=== PATIENT | male | born 1955 | race African-American/Black ===

== ENCOUNTER 2023-04-10 21:24 | Emergency (ER) | payer MEDICARE, MEDICAID ==
[~2023-04-10] VITALS: Ht 167.6 cm; Wt 60.0 kg
[2023-04-10 21:40] VITALS: TEMP 98.1; O2SAT 98
[2023-04-10 23:00] VITALS: BP 114/74; PULSE 95; RESP 15
[2023-04-10 23:38] LABS: BASOPHILS % 0.8 % (0.0-2.0); DIFFERENTIAL COMMENT 0; EOSINOPHILS % 3.2 % (0.0-5.0); HEMATOCRIT. 47.3 % (42.0-52.0); HEMOGLOBIN. 16.2 g/dL (14.0-18.0); LYMPHOCYTES % 18.4 % (20.0-50.0); MEAN CORPUSCULAR HEMOGLOBIN 31.9 pg (28.0-32.0); MEAN CORPUSCULAR HGB CONC 34.3 g/dL (31.0-37.0); MEAN CORPUSCULAR VOLUME 93.1 fL (80.0-94.0); MEAN PLATELET VOLUME 9.6 fl (7.4-10.4); MONOCYTES % 8.9 % (2.0-8.0); NEUTROPHILS % 68.7 % (40.0-76.0); PLATELET 151 x1000/uL (130-400); RED BLOOD CELL COUNT 5.08 mill/uL (4.7-6.1); RED CELL DISTRIBUTION WIDTH 16.2 % (11.6-14.6); WHITE BLOOD COUNT 6.4 x1000/uL (4.5-11.0)
[2023-04-10 23:50] LABS: AMMONIA < 10 uMol/L (<32)
[2023-04-10 23:54] LABS: ACETAMINOPHEN < 2 ug/mL (10-30); ALANINE AMINOTRANSFERASE 13 IU/L (10-49); ALBUMIN 4.5 g/dL (3.2-4.8); ASPARTATE AMINOTRANSFERASE 20 IU/L (<34); BILIRUBIN TOTAL 0.5 mg/dL (0.1-1.0); CALCIUM 9.6 mg/dL (8.7-10.4); CARBON DIOXIDE 26 mEq/L (21-32); CHLORIDE 104 mEq/L (98-107); CREATININE 1.2 mg/dL (0.6-1.3); GLUCOSE 130 mg/dL (70-105); POTASSIUM 3.9 mEq/L (3.5-5.1); PROTEIN TOTAL 8.4 g/dL (6.0-8.3); SODIUM 139 mEq/L (136-145); THYROID STIMULATING HORMONE 2.64 uIU/mL (0.55-4.78); TROPONIN I HIGH SENSITIVITY 30 ng/L (3.0-53); UREA NITROGEN BLOOD 20 mg/dL (9-23)
[2023-04-11 00:19] LABS: ETHANOL BLOOD < 10 mg/dL (<10)
[2023-04-11] MEDS ORDERED: NALO4SPR BOTHNSTRLS (01:14)
== END 2023-04-11 03:05 | disposition home or self-care (01) ==
LOC: EDBD 21:24 → ER 21:24
DX: T65.91XA Toxic effect of unspecified substance, accidental (unintentional), initial encounter (principal); X58.XXXA Exposure to other specified factors, initial encounter
CPT/HCPCS: 36415; 71045; 80053; 80307; 80320; 80329; 82140; 84443; 84484; 85025; 93005; 99285; G0480

== ENCOUNTER 2023-10-20 08:50 | Emergency (ER) | payer BC, MEDICAID ==
[~2023-10-20] VITALS: Ht 177.8 cm; Wt 78.0 kg
[~2023-10-20 08:50] MED LIST: NALO4SPR BOTHNSTRLS
[2023-10-20] MEDS ORDERED: IPRATROPIUM BROMIDE (0.02%) 0.5MG/2.5ML NEB HHN STA (09:05)
[2023-10-20] MEDS ORDERED: ALBUTEROL (0.083%) 2.5MG/3ML NEB HHN STA (09:05)
[2023-10-20] MEDS ORDERED: ALBUTEROL (0.083%) 2.5MG/3ML NEB HHN SCH (09:30)
[2023-10-20 09:33] VITALS: PULSE 69; RESP 22; O2SAT 100
[2023-10-20 09:34] LABS: BG BASE EXCESS -1.8 mmol/L (-2.0-2.0); BG CARBOXYHEMOGLOBIN 1.6 % (0.5-1.5); BG DEOXYHEMOGLOBIN 3.5 % (0.0-5.0); BG FRACTION INSPIRED OXYGEN 21; BG HCO3 ACT 21.8 mmol/L (22.0-26.0); BG METHEMOGLOBIN 0.3 % (0.0-1.5); BG OXYGEN SATURATION 96.4 % (92.0-98.5); BG OXYHEMOGLOBIN 94.6 % (94.0-97.0); BG PCO2 33.5 mmHg (35.0-45.0); BG PH 7.432 (7.350-7.450); BG PO2 86.6 mmHg (75.0-100.0); BG SAMPLE SITE RIGHT BRACHIAL; BG TOTAL HEMOGLOBIN 11.6 g/dL (12.0-18.0); BG VENT MODE ROOM AIR
[2023-10-20 09:35] LABS: BASOPHILS % 0.6 % (0.0-2.0); HEMATOCRIT. 35.8 % (42.0-52.0); HEMOGLOBIN. 11.6 g/dL (14.0-18.0); LYMPHOCYTES % 23.1 % (20.0-50.0); MEAN CORPUSCULAR HEMOGLOBIN 32.3 pg (28.0-32.0); MEAN CORPUSCULAR HGB CONC 32.5 g/dL (31.0-37.0); MEAN CORPUSCULAR VOLUME 99.3 fL (80.0-94.0); MEAN PLATELET VOLUME 10.6 fl (7.4-10.4); MONOCYTES % 8.7 % (2.0-8.0); NEUTROPHILS % 65.6 % (40.0-76.0); PLATELET 129 x1000/uL (130-400); RED BLOOD CELL COUNT 3.61 mill/uL (4.7-6.1); RED CELL DISTRIBUTION WIDTH 17.8 % (11.6-14.6); WHITE BLOOD COUNT 5.5 x1000/uL (4.5-11.0)
[2023-10-20 09:41] LABS: CHLORIDE 109 mEq/L (98-107); POTASSIUM 3.9 mEq/L (3.5-5.1); SODIUM 142 mEq/L (136-145)
[2023-10-20 09:42] LABS: CALCIUM 8.3 mg/dL (8.7-10.4); CARBON DIOXIDE 25 mEq/L (21-32)
[2023-10-20 09:47] LABS: GLUCOSE 163 mg/dL (70-105); PARTIAL THROMBOPLASTIN TIME 27.6 sec (23.4-31.0); PROTHROMBIN TIME 11.3 sec (9.6-11.0); UREA NITROGEN BLOOD 26 mg/dL (9-23)
[2023-10-20 09:49] LABS: TROPONIN I HIGH SENSITIVITY 27 ng/L (3.0-53)
[2023-10-20 10:06] LABS: CREATININE 1.7 mg/dL (0.6-1.3); ETHANOL BLOOD < 10 mg/dL (<10)
[2023-10-20] MEDS: MAGNESIUM 2 G PREMIX 50 ML IV ONE (10:18)
[2023-10-20] MEDS: METHYLPREDNISOLONE SOD SUCC 125MG/2ML (ACT-O-VIAL) IV STA (10:18)
[2023-10-20] MEDS: ASPIRIN 81MG TABLET PO ONE (10:18)
[2023-10-20] MEDS: SODIUM CHLORIDE 0.9% 1,000 ML IV ONE (10:37)
[2023-10-20 11:36] LABS: TROPONIN I HIGH SENSITIVITY 25 ng/L (3.0-53)
[2023-10-20] MEDS ORDERED: ALBU6.7H15 INH (12:29)
[2023-10-20] MEDS ORDERED: P50 MT (12:29)
[2023-10-20 13:45] VITALS: BP 108/75; PULSE 70; RESP 20; TEMP 98.4
== END 2023-10-20 13:50 | disposition home or self-care (01) ==
LOC: ER 08:50
DX: J44.1 Chronic obstructive pulmonary disease with (acute) exacerbation (principal); N17.9 Acute kidney failure, unspecified; F17.210 Nicotine dependence, cigarettes, uncomplicated; E11.9 Type 2 diabetes mellitus without complications
CPT/HCPCS: 80048; 80320; 83880; 85025; 85610; 85730; 84484; 36415; 71045; 94640; 82805; 82375; 93005; 96365; 96375; 99291; 99406; 36600; J3475; J2919; J7030; G0480

== ENCOUNTER 2023-10-26 19:29 | Emergency (ER) | payer BC, MEDICAID ==
[~2023-10-26] VITALS: Ht 177.8 cm; Wt 170.0 kg
[~2023-10-26 19:29] MED LIST changes: +ALBU6.7H15 INH; +P50 MT
[2023-10-26 19:42] VITALS: O2SAT 99
[2023-10-26 20:37] VITALS: TEMP 98.2
[2023-10-26 21:08] LABS: BASOPHILS % 0.5 % (0.0-2.0); EOSINOPHILS % 1.9 % (0.0-5.0); HEMATOCRIT. 36.6 % (42.0-52.0); HEMOGLOBIN. 11.9 g/dL (14.0-18.0); LYMPHOCYTES % 26.7 % (20.0-50.0); MEAN CORPUSCULAR HGB CONC 32.6 g/dL (31.0-37.0); MEAN CORPUSCULAR VOLUME 98.3 fL (80.0-94.0); MEAN PLATELET VOLUME 9.7 fl (7.4-10.4); MONOCYTES % 10.3 % (2.0-8.0); NEUTROPHILS % 60.6 % (40.0-76.0); PLATELET 190 x1000/uL (130-400); RED BLOOD CELL COUNT 3.72 mill/uL (4.7-6.1); RED CELL DISTRIBUTION WIDTH 17.3 % (11.6-14.6); WHITE BLOOD COUNT 6.2 x1000/uL (4.5-11.0)
[2023-10-26 21:14] LABS: CHLORIDE 112 mEq/L (98-107); POTASSIUM 3.4 mEq/L (3.5-5.1); SODIUM 143 mEq/L (136-145)
[2023-10-26 21:15] LABS: CALCIUM 8.5 mg/dL (8.7-10.4); CARBON DIOXIDE 23 mEq/L (21-32)
[2023-10-26 21:20] LABS: CREATININE 1.2 mg/dL (0.6-1.3); GLUCOSE 182 mg/dL (70-105); UREA NITROGEN BLOOD 18 mg/dL (9-23)
[2023-10-26 21:22] LABS: ALANINE AMINOTRANSFERASE 29 IU/L (10-49); ALBUMIN 3.5 g/dL (3.2-4.8); ASPARTATE AMINOTRANSFERASE 15 IU/L (<34)
[2023-10-26 21:23] LABS: BILIRUBIN TOTAL 1.1 mg/dL (0.1-1.0)
[2023-10-26 21:24] LABS: PROTEIN TOTAL 5.5 g/dL (6.0-8.3)
[2023-10-26] MEDS: MORPHINE SULFATE 4 MG/ML INJ (FOR IV/IM USE) IV STA (22:08)
[2023-10-26] MEDS: KETOROLAC 30MG/ML VIAL IV STA (22:08)
[2023-10-26] MEDS: SODIUM CHLORIDE 0.9% 1,000 ML IV ONE (22:09)
[2023-10-26 23:36] LABS: CLARITY URINE CLEAR (CLEAR); COLOR URINE DARK YELLOW (YELLOW); GLUCOSE URINE NEGATIVE (NEGATIVE); KETONES URINE TRACE (NEGATIVE); LEUKOCYTE ESTERASE URINE TRACE (NEGATIVE); NITRITE URINE NEGATIVE (NEGATIVE); OCCULT BLOOD URINE NEGATIVE (NEGATIVE); PH URINE 5.5 (4.5-8.0); PROTEIN URINE 2+ (NEGATIVE); SPECIFIC GRAVITY URINE 1.028 (1.005-1.030)
[2023-10-27] MEDS ORDERED: CEPH500T MT (00:24)
[2023-10-27 00:39] VITALS: BP 130/75; PULSE 65; RESP 16
[2023-10-27 02:57] LABS: SQUAMOUS EPITHELIAL CELL URINE FEW /lpf (RARE/1+)
[2023-10-27 02:58] LABS: WBC URINE 0-2 /hpf (0-2)
[2023-10-27 02:59] LABS: RBC URINE 0-2 /hpf (0-2)
[2023-10-27 03:01] LABS: BACTERIA URINE NONE SEEN
== END 2023-10-27 00:42 | disposition home or self-care (01) ==
LOC: ER 19:29
DX: N39.0 Urinary tract infection, site not specified (principal); E11.9 Type 2 diabetes mellitus without complications; I10 Essential (primary) hypertension
CPT/HCPCS: 99285; 74176; 96374; 96361; 96375; 80053; 81003; 83690; 85025; 36415; J1885; J2270; J7030